=== PATIENT | male | born 1950 | race Caucasian/White ===

== ENCOUNTER 2016-09-10 11:48 | Emergency (ER) | payer MEDICARE, OTHER ==
[2016-09-10] MEDS ORDERED: Aspirin 81 MG Tab.Chew PO ONE (12:14)
--- NOTE | 2016-09-10 12:19 | EDM.PDOC ---
ED HPI GENERAL MEDICAL PROBLEM - General Chief Complaint: Chest Pain Stated Complaint: CHEST DISCOMFORT Time Seen by Provider: 09/10/16 12:17 Source of Information: Reports: Patient, RN Notes Reviewed History Limitations: Reports: No Limitations - History of Present Illness INITIAL COMMENTS - FREE TEXT/NARRATIVE: 66-year-old gentleman presents emergency department a complaint of chest pressure, he has a known cardiac history recently underwent stenting about a year and a half ago he states over the last 48 hours he said chest pressure mainly at night it is progressively getting worse he does not notice any difference with exertion has some radiations down his left arm does feel short of breath no nausea no diaphoresis at this time he is chest pain-free Left Chest Pain Score (Numeric/FACES): 6 - Related Data Allergies Allergy/AdvReac Type Severity Reaction Status Date / Time No Known Allergies Allergy Verified 09/10/16 12:33 Home Meds: Home Meds Aspirin 325 mg PO DAILY 09/10/16 [History] Clopidogrel [Plavix] 75 mg PO DAILY 09/10/16 [History] Levothyroxine Sodium 137 mcg PO DAILY 09/10/16 [History] Lisinopril [Prinivil] 2.5 mg PO DAILY 09/10/16 [History] Metoprolol Tartrate [Metoprolol Tartrate] 25 mg PO BID 09/10/16 [History] Nitroglycerin [IJP: Nitroglycerin] 0.4 mg SL ASDIRECTED PRN 09/10/16 [History] Omeprazole [Omeprazole] 20 mg PO BID 09/10/16 [History] atorvaSTATin [Lipitor] 40 mg PO BEDTIME 09/10/16 [History] metFORMIN HCl [Metformin HCl] 500 mg PO BID 09/10/16 [History] Past Medical History HEENT History: Reports: Impaired Vision Cardiovascular History: Reports: Heart Murmur, Stents Genitourinary History: Reports: BPH Endocrine/Metabolic History: Reports: Diabetes, Type II, Hypothyroidism - Past Surgical History GI Surgical History: Reports: Colonoscopy Social & Family History - Tobacco Use Smoking Status *Q: Never Smoker - Caffeine Use Caffeine Use: Reports: Coffee - Recreational Drug Use Recreational Drug Use: No ED ROS GENERAL - Review of Systems Review Of Systems: See Below Constitutional: Reports: No Symptoms HEENT: Reports: No Symptoms Respiratory: Reports: Shortness of Breath Cardiovascular: Reports: Chest Pain GI/Abdominal: Reports: No Symptoms : Reports: No Symptoms Musculoskeletal: Reports: No Symptoms Skin: Reports: No Symptoms ED EXAM, GENERAL - Physical Exam Exam: See Below Free Text/Narrative:: General:male, not in any distress, alert and oriented x3 HEENT: head is atraumatic normocephalic, eyes pupils equal round reactive to light, sclera clear no conjunctivitis appreciated. Ears tympanic membranes clear and ferris landmarks and light reflex are present bilaterally canals are clear. Nose no septal deviation, nares are clear, no blood present. Mouth mucosa is moist and pink no erythema or exudate noted in soft palate, tongue is midline uvula is midline, dentition is intact. Neck: Supple no thyromegaly no tracheal deviation. Nodes: Cervical nodes subclavicular nodes nontender no palpable lymphadenopathy noted. Lungs: clear to auscultation bilaterally with symmetrical respirations, no adventitious noise appreciated. CV: Regular rate and rhythm S1 and S2 appreciated no murmurs rubs or gallops noted. Abdomen: Soft, nontender, no palpable masses or organomegaly appreciated, no distention no guarding bowel sounds are present, umbilical hernia appreciated. Neuro: Cranial nerves II through XII grossly intact Skin: Warm and dry, intact Extremities: No lower extremity edema appreciated, Course - Vital Signs Last Recorded V/S: Last Vital Signs Temp 98.1 F 09/10/16 13:49 Pulse 62 09/10/16 13:49 Resp 16 09/10/16 13:49 BP 132/77 09/10/16 13:49 Pulse Ox 96 09/10/16 13:49 - Orders/Labs/Meds Orders: Active Orders 24 hr Category Date Time Status Cardiac Monitoring [RC] .As Directed Care 09/10/16 12:09 Active EKG Documentation Completion [RC] ASDIRECTED Care 09/10/16 12:17 Active EKG 12 Lead [EK] Stat Ther 09/10/16 12:09 Ordered Labs: Laboratory Tests 09/10/16 09/10/16 09/10/16 Range/Units 12:20 12:20 12:20 WBC 10.4 (4.5-11.0) K/uL RBC 4.76 (4.30-5.90) M/uL Hgb 14.7 (12.0-15.0) g/dL Hct 43.2 (40.0-54.0) % MCV 91 (80-98) fL MCH 31 (27-31) pg MCHC 34 (32-36) % Plt Count 201 (150-400) K/uL Neut % (Auto) 69 H (36-66) % Lymph % (Auto) 23 L (24-44) % [place] % (Auto) 8 H (2-6) % Eos % (Auto) 1 L (2-4) % Baso % (Auto) 0 (0-1) % Sodium 141 (140-148) mmol/L Potassium 4.1 (3.6-5.2) mmol/L Chloride 105 (100-108) mmol/L Carbon Dioxide 28 (21-32) mmol/L Anion Gap 8.4 (5.0-14.0) mmol/L BUN 19 H (7-18) mg/dL Creatinine 1.2 (0.8-1.3) mg/dL Est Cr Clr Drug Dosing 60.83 mL/min Estimated GFR (MDRD) > 60 (>60) Glucose 136 H (74-106) mg/dL Calcium 8.9 (8.5-10.1) mg/dL Total Bilirubin 0.9 (0.2-1.0) mg/dL AST 16 (15-37) U/L ALT 24 (12-78) U/L Alkaline Phosphatase 72 (46-116) U/L Troponin I 0.018 (0.000-0.056) ng/mL [id number] Pept 137 H (5-125) pg/mL Total Protein 6.9 (6.4-8.2) g/dL Albumin 3.4 (3.4-5.0) g/dL Globulin 3.5 (2.3-3.5) g/dL Albumin/Globulin Ratio 1.0 L (1.2-2.2) Meds: Medications Discontinued Medications Generic Name Dose Route Start Last Admin Trade Name Kleberq PRN Reason Stop Dose Admin Aspirin 324 mg 09/10/16 12:14 09/10/16 12:39 Aspirin PO 09/10/16 12:15 324 mg ONETIME ONE Administration Departure - Departure Time of Disposition: 14:03 Disposition: Home, Self-Care 01 Condition: Good Clinical Impression: Chest pressure Forms: ED Department Discharge Additional Instructions: Please report for your stress test on Friday, results about your primary care plan if results are abnormal referral to cardiology, call or return to the emergency department worsening of symptoms - My Orders Last 24 Hours: My Active Orders 09/10/16 12:09 Cardiac Monitoring [RC] .As Directed EKG 12 Lead [EK] Stat 09/10/16 12:17 EKG Documentation Completion [RC] ASDIRECTED - Assessment/Plan Last 24 Hours: My Active Orders 09/10/16 12:09 Cardiac Monitoring [RC] .As Directed EKG 12 Lead [EK] Stat 09/10/16 12:17 EKG Documentation Completion [RC] ASDIRECTED Plan: Assessment Acuity = acute Site and laterality = chest pain complicated patient with known history of coronary artery disease, dyslipidemia hypertensionand diabetes most type II Etiology = unclear etiology Manifestations = none Location of injury = home Lab values = CBC, CMP within normal limits troponin was negative EKG does show Q waves in lead 3 however this is same EKGs in 2014 chest x-ray shows no acute cardiopulmonary process Plan I did review lab work EKG results with him offered him options including hospital admission of which she declined elected to set up a stress test this week we were able to secure stress test [place] on Friday results will go to his primary care if abnormal plan is to consult with cardiology Patient was in agreement with the plan all questions were answered, they were instructed to return to the emergency department or call for worsening symptoms. This note was dictated using [employer] voice recognition software please call with any questions.
--- NOTE | 2016-09-10 13:17 | CR ---
Chest 2V HISTORY: Chest Pain COMPARISON: None FINDINGS: Lungs appear clear and normally aerated. Cardiomediastinal silhouette is within normal limits. No va scular redistribution or pleural fluid can be seen. Anterolateral aspects are noted diffusely along the thoracic spine. There is slight scoliosis convex to the right.. IMPRESSION: No acute cardiopulmonary disease is identified.
[2016-09-10 14:43] VITALS: BP 132/78
== END 2016-09-10 14:44 | disposition home or self-care (01) ==
LOC: JP.ED 11:48
DX: R07.89 Other chest pain (principal); E11.9 Type 2 diabetes mellitus without complications; E03.9 Hypothyroidism, unspecified; Z79.899 Other long term (current) drug therapy; Z79.82 Long term (current) use of aspirin
CPT/HCPCS: 36415; 71020; 80053; 83880; 84484; 85025; 93005; 99285; A9270; 93010; 99282

== ENCOUNTER 2019-10-11 14:13 | Emergency (ER) | payer MEDICARE, OTHER ==
[2019-10-11] MEDS ORDERED: Aspirin 81 MG Tab.Chew PO ONE (15:24)
[2019-10-11] MEDS ORDERED: Sodium Chloride 0.9% 500 ML IV SCH (15:30)
--- NOTE | 2019-10-11 15:32 | EDM.PDOC ---
ED HPI GENERAL MEDICAL PROBLEM - General Chief Complaint: Cardiovascular Problem Stated Complaint: HIGH BLOOD PRESSURE Time Seen by Provider: 10/11/19 14:15 Source of Information: Reports: Patient History Limitations: Reports: No Limitations - History of Present Illness INITIAL COMMENTS - FREE TEXT/NARRATIVE: 69-year-old male who has a history of coronary artery disease and a triple bypass a few years ago, type 2 diabetes mellitus, hypertension and Parkinson's disease presents to the emergency department with elevated blood pressure and vague symptoms. He takes his blood pressure a couple times a day and is noted increased readings over the past several days. His keeps track of them in a notebook and he has had a reading as high as 190 systolic although his son sa neal at times is even higher than that. He has no symptoms when his blood pressure readings are high however at other times he has vague feelings of not feeling well. At times he also has bilateral arm pain and nausea. Appears that his activity is less than usual over the past week however it is difficult for his family to be specific. He contacted his primary care's office today and they referred him to the ER for further evaluation. He notes occasional sharp prickly feelings anterior chest that are short-lived. He denies nausea, vomiting, diaphoresis or shortness of breath. He lives at home with his . Chest Pain Score (Numeric/FACES): 1 - Related Data Allergies Allergy/AdvReac Type Severity Reaction Status Date / Time No Known Allergies Allergy Verified 10/11/19 14:36 Home Meds: Home Meds Levothyroxine Sodium 137 mcg PO DAILY 09/10/16 [History] Metoprolol Tartrate 25 mg PO BID 09/10/16 [History] Nitroglycerin [IJP: Nitroglycerin] 0.4 mg SL ASDIRECTED PRN 09/10/16 [History] Omeprazole 20 mg PO BID 09/10/16 [History] atorvaSTATin [Lipitor] 40 mg PO BEDTIME 09/10/16 [History] lisinopriL [Prinivil] 2.5 mg PO DAILY 09/10/16 [History] metFORMIN HCl [Metformin HCl] 500 mg PO BID 09/10/16 [History] Aspirin [Ecotrin EC] 81 mg PO DAILY 10/11/19 [History] QUEtiapine Fumarate [Quetiapine Fumarate] 25 mg PO DAILY 10/11/19 [History] Tamsulosin [Tamsulosin 24 Hr] 0.4 mg PO DAILY 10/11/19 [History] Ubidecarenone [Co Q-10] 100 mg PO DAILY 10/11/19 [History] Vitamin B Complex 1 cap PO DAILY 10/11/19 [History] traZODone HCl [Trazodone HCl] 50 mg PO BEDTIME 10/11/19 [History] Past Medical History HEENT History: Reports: Impaired Vision, Other (See Below) Other HEENT History: eye infection Cardiovascular History: Reports: CAD, Heart Murmur, High Cholesterol, Hypertension, Stents Respiratory History: Reports: COPD Gastrointestinal History: Reports: Gastritis, GI Bleed Genitourinary History: Reports: BPH Musculoskeletal History: Reports: None Neurological History: Reports: Parkinson's Other Neuro History: ? Parkinsons Psychiatric History: Reports: None Endocrine/Metabolic History: Reports: Diabetes, Type II, Hypothyroidism Hematologic History: Reports: None Immunologic History: Reports: None Oncologic (Cancer) History: Reports: None Dermatologic History: Reports: None - Past Surgical History Cardiovascular Surgical History: Reports: Coronary Artery Bypass, Percutaneous Transluminal Angioplasty Other Cardiovascular Surgeries/Procedures: 2 years ago GI Surgical History: Reports: Colonoscopy, Hernia Repair/Other Social & Family History - Tobacco Use Smoking Status *Q: Never Smoker - Caffeine Use Caffeine Use: Reports: Coffee, Tea - Recreational Drug Use Recreational Drug Use: No ED ROS GENERAL - Review of Systems Review Of Systems: See Below Constitutional: Denies: Fever, Chills, Diaphoresis HEENT: Denies: Vision Change Respiratory: Denies: Shortness of Breath, Cough Cardiovascular: Reports: Chest Pain, Blood Pressure Problem GI/Abdominal: Denies: Nausea, Vomiting Musculoskeletal: Denies: Neck Pain, Back Pain Skin: Reports: Rash Neurological: Reports: Trouble Speaking, Difficulty Walking Psychiatric: Denies: Confusion ED EXAM, GENERAL - Physical Exam Exam: See Below Exam Limited By: Other (He has Parkinson's disease and his voice is difficult to hear. He is quite vague and much of his history was provided by his son and . I spoke to the by phone. His son accompanied him to the ER today.) General Appearance: Alert, No Apparent Distress Ears: Normal External Exam, Normal Canal Throat/Mouth: Normal Inspection Head: Atraumatic, Normocephalic Neck: Normal Inspection, Supple, Non-Tender, Other (No JVD) Respiratory/Chest: Lungs Clear, Normal Breath Sounds Cardiovascular: No Edema, No Gallop, No JVD, No Murmur GI/Abdominal: Normal Bowel Sounds, Soft, Non-Tender Extremities: Normal Inspection, Non-Tender, Pedal Edema Neurological: Alert, Memory Loss Recent Events, Other (Flat facial expression, low voice volume and muscle stiffness characteristic of Parkinson's disease.) Course - Vital Signs Text/Narrative:: This patient presents to the emergency department with vague symptoms. He is mostly concerned about his blood pressure. He is also concerned about discomfort in his arms, chest and also red eyes. Blood pressure readings were elevated at home. In the ED they were stable at 169/80 systolic. He was afebrile and the other vital sign elements were normal. He had chest x-ray that appeared to be acute to me. ECG showed no acute changes compared to previous x-rays by my read. He had normal CBC and his basic metabolic profile appeared unremarkable. Blood sugar is slightly elevated 119. His creatinine is 1.1. His BNP is slightly elevated 284 but I saw no physical signs of failure and his chest x-ray appeared normal. Troponin was negative and a urinalysis was unremarkable. Discharging him home to follow-up with his primary care provider who can adjust his blood pressure medications. His family felt comfortable with this plan. Also given a prescription of antibiotic eyedrops for his red eyes. He is using a clear eyes type of eyedrop and he was advised to stop it. There is a rebound redness that comes with that medication. We will follow-up with his primary care provider or inspector [employer] for eye problems as well. Last Recorded V/S: Last Vital Signs Temp 37.4 C 10/11/19 14:24 Pulse 74 10/11/19 16:35 Resp 20 10/11/19 16:35 BP 169/83 H 10/11/19 16:35 Pulse Ox 96 10/11/19 16:35 - Orders/Labs/Meds Orders: Active Orders 24 hr Category Date Time Status EKG Documentation Completion [RC] ASDIRECTED Care 10/11/19 15:08 Active Chest 1V Frontal [CR] Stat Exams 10/11/19 15:20 Taken Sodium Chloride 0.9% [Normal Saline] 500 ml Med 10/11/19 15:30 Active IV ASDIRECTED EKG 12 Lead [EK] Routine Ther 10/11/19 15:08 Ordered Medication Orders Sodium Chloride (Normal Saline) 500 mls @ 1,000 mls/hr IV ASDIRECTED DESHAWN Last Admin: 10/11/19 15:50 Dose: 1,000 mls/hr Documented by: PREILOR Labs: Laboratory Tests 10/11/19 10/11/19 10/11/19 Range/Units 15:23 15:50 15:50 WBC 10.3 (4.5-11.0) K/uL RBC 4.61 (4.30-5.90) M/uL Hgb 13.7 (12.0-15.0) g/dL Hct 42.6 (40.0-54.0) % MCV 92 (80-98) fL MCH 30 (27-31) pg MCHC 32 (32-36) % Plt Count 217 (150-400) K/uL Neut % (Auto) 74 H (36-66) % Lymph % (Auto) 18 L (24-44) % [place] % (Auto) 7 H (2-6) % Eos % (Auto) 1 L (2-4) % Baso % (Auto) 0 (0-1) % Sodium 145 (140-148) mmol/L Potassium 3.9 (3.6-5.2) mmol/L Chloride 108 (100-108) mmol/L Carbon Dioxide 23 (21-32) mmol/L Anion Gap 13.7 (5.0-14.0) mmol/L BUN 27 H (7-18) mg/dL Creatinine 1.1 (0.8-1.3) mg/dL Est Cr Clr Drug Dosing 61.59 mL/min Estimated GFR (MDRD) > 60 (>60) Glucose 119 H (74-106) mg/dL Calcium 8.7 (8.5-10.1) mg/dL Troponin I (0.000-0.056) ng/mL NT-Pro-B Natriuret Pep (5-125) pg/mL Urine Color Yellow (YELLOW) Urine Appearance Clear (CLEAR) Urine pH 5.5 (5.0-8.0) Ur Specific [place] >= 1.030 (1.008-1.030) Urine Protein Negative (NEGATIVE) mg/dL Urine Glucose (UA) Negative (NEGATIVE) mg/dL Urine Ketones Negative (NEGATIVE) mg/dL Urine Occult Blood Negative (NEGATIVE) Urine Nitrite Negative (NEGATIVE) Urine Bilirubin Negative (NEGATIVE) Urine Urobilinogen 1.0 (0.2-1.0) EU/dL Ur Leukocyte Esterase Negative (NEGATIVE) Urine RBC Not seen (0-5) Urine WBC 0-5 (0-5) Ur Epithelial Cells Not seen Amorphous Sediment Not seen Urine Bacteria Rare Urine Mucus Not seen 10/11/19 Range/Units 15:50 WBC (4.5-11.0) K/uL RBC (4.30-5.90) M/uL Hgb (12.0-15.0) g/dL Hct (40.0-54.0) % MCV (80-98) fL MCH (27-31) pg MCHC (32-36) % Plt Count (150-400) K/uL Neut % (Auto) (36-66) % Lymph % (Auto) (24-44) % [place] % (Auto) (2-6) % Eos % (Auto) (2-4) % Baso % (Auto) (0-1) % Sodium (140-148) mmol/L Potassium (3.6-5.2) mmol/L Chloride (100-108) mmol/L Carbon Dioxide (21-32) mmol/L Anion Gap (5.0-14.0) mmol/L BUN (7-18) mg/dL Creatinine (0.8-1.3) mg/dL Est Cr Clr Drug Dosing mL/min Estimated GFR (MDRD) (>60) Glucose (74-106) mg/dL Calcium (8.5-10.1) mg/dL Troponin I < 0.017 (0.000-0.056) ng/mL NT-Pro-B Natriuret Pep 284 H (5-125) pg/mL Urine Color (YELLOW) Urine Appearance (CLEAR) Urine pH (5.0-8.0) Ur Specific [place] (1.008-1.030) Urine Protein (NEGATIVE) mg/dL Urine Glucose (UA) (NEGATIVE) mg/dL Urine Ketones (NEGATIVE) mg/dL Urine Occult Blood (NEGATIVE) Urine Nitrite (NEGATIVE) Urine Bilirubin (NEGATIVE) Urine Urobilinogen (0.2-1.0) EU/dL Ur Leukocyte Esterase (NEGATIVE) Urine RBC (0-5) Urine WBC (0-5) Ur Epithelial Cells Amorphous Sediment Urine Bacteria Urine Mucus Meds: Medications Generic Name Dose Route Start Last Admin Trade Name Freq PRN Reason Stop Dose Admin Sodium Chloride 500 mls @ 1,000 mls/hr 10/11/19 15:30 10/11/19 15:50 Normal Saline IV 1,000 mls/hr ASDIRECTED DESHAWN Administration Discontinued Medications Generic Name Dose Route Start Last Admin Trade Name Freq PRN Reason Stop Dose Admin Aspirin 324 mg 10/11/19 15:24 10/11/19 15:51 Aspirin PO 10/11/19 15:25 324 mg ONETIME ONE Administration Departure - Departure Time of Disposition: 16:40 Disposition: Home, Self-Care 01 Condition: Good Clinical Impression: Elevated blood pressure reading Referrals: Deny Espinoza NP [Primary Care Provider] - Forms: ED Department Discharge Additional Instructions: New all your current medications. Follow-up with your primary care provider in the clinic regarding your blood pressure and medication adjustments. Return to the ER if you have increased symptoms or problems. Sepsis Event Note (ED) - Evaluation Sepsis Screening Result: No Definite Risk - Focused Exam Vital Signs: Vital Signs Temp Pulse Resp BP Pulse Ox 10/11/19 16:35 74 20 169/83 H 96 10/11/19 15:56 75 26 H 168/72 H 96 10/11/19 15:25 75 18 168/72 H 96 10/11/19 14:55 80 16 175/77 H 96 10/11/19 14:24 37.4 C 82 16 178/93 H 97 - My Orders Last 24 Hours: My Active Orders 10/11/19 15:08 EKG Documentation Completion [RC] ASDIRECTED EKG 12 Lead [EK] Routine 10/11/19 15:20 Chest 1V Frontal [CR] Stat 10/11/19 15:30 Sodium Chloride 0.9% [Normal Saline] 500 ml IV ASDIRECTED - Assessment/Plan Last 24 Hours: My Active Orders 10/11/19 15:08 EKG Documentation Completion [RC] ASDIRECTED EKG 12 Lead [EK] Routine 10/11/19 15:20 Chest 1V Frontal [CR] Stat 10/11/19 15:30 Sodium Chloride 0.9% [Normal Saline] 500 ml IV ASDIRECTED
[2019-10-11 16:35] VITALS: BP 169/83; PULSE 74
--- NOTE | 2019-10-12 09:01 | CR ---
CHEST: Portable 10/11/2019 at 3:44 PM CLINICAL HISTORY:Chest pain COMPARISON:2017 FINDINGS: Patient has had previous sternotomy. Heart size and pulmonary vascularity are normal. No infiltrates are seen. There are a few tiny calcifications in both lung [place]. There are atherosclerotic changes in the aorta. Impression: No acute cardiac pulmonary process Previous sternotomy. Previous granulomatous exposure.
== END 2019-10-11 17:18 | disposition home or self-care (01) ==
LOC: JP.ED 14:13
DX: I10 Essential (primary) hypertension (principal); E78.00 Pure hypercholesterolemia, unspecified; I25.10 Atherosclerotic heart disease of native coronary artery without angina pectoris; J44.9 Chronic obstructive pulmonary disease, unspecified; E11.9 Type 2 diabetes mellitus without complications; E03.9 Hypothyroidism, unspecified; Z79.899 Other long term (current) drug therapy; Z79.82 Long term (current) use of aspirin; Z79.84 Long term (current) use of oral hypoglycemic drugs
CPT/HCPCS: 36415; 71045; 80048; 81001; 83880; 84484; 85025; 93005; 93010; 96360; 99284; A9270; J7030

== ENCOUNTER 2019-11-28 00:38 | Emergency (ER) | payer MEDICARE, OTHER ==
--- NOTE | 2019-11-28 01:13 | EDM.PDOC ---
ED HPI GENERAL MEDICAL PROBLEM - General Chief Complaint: Cardiovascular Problem Stated Complaint: HIGH BLOOD PRESSURE Time Seen by Provider: 11/28/19 01:05 Source of Information: Reports: Patient History Limitations: Reports: No Limitations - History of Present Illness INITIAL COMMENTS - FREE TEXT/NARRATIVE: pt had like a pop when he got up from the couch. He states the pain last for a few moments and then it got better. He was not sob. He has been having some bp problems and 2 days ago his metropol was doubled. Onset: Today, Other (pt developed the sharp pain. ) Duration: Hour(s): Location: Reports: Chest, Other (pt felt like something popped/ ) Associated Symptoms: Reports: Chest Pain, Other ( slight dizziness. He stood up from the couch and he felt dizzy. ) Middle Chest Pain Score (Numeric/FACES): 1 - Related Data Allergies Allergy/AdvReac Type Severity Reaction Status Date / Time No Known Allergies Allergy Verified 11/28/19 00:49 Home Meds: Home Meds Levothyroxine Sodium 137 mcg PO DAILY 09/10/16 [History] Metoprolol Tartrate 25 mg PO BID 09/10/16 [History] Nitroglycerin [IJP: Nitroglycerin] 0.4 mg SL ASDIRECTED PRN 09/10/16 [History] Omeprazole 20 mg PO BID 09/10/16 [History] atorvaSTATin [Lipitor] 40 mg PO BEDTIME 09/10/16 [History] lisinopriL [Prinivil] 2.5 mg PO DAILY 09/10/16 [History] metFORMIN HCl [Metformin HCl] 500 mg PO BID 09/10/16 [History] Aspirin [Ecotrin EC] 81 mg PO DAILY 10/11/19 [History] QUEtiapine Fumarate [Quetiapine Fumarate] 25 mg PO DAILY 10/11/19 [History] Tamsulosin [Tamsulosin 24 Hr] 0.4 mg PO DAILY 10/11/19 [History] Ubidecarenone [Co Q-10] 100 mg PO DAILY 10/11/19 [History] Vitamin B Complex 1 cap PO DAILY 10/11/19 [History] traZODone HCl [Trazodone HCl] 50 mg PO BEDTIME 10/11/19 [History] Past Medical History HEENT History: Reports: Impaired Vision, Other (See Below) Other HEENT History: eye infection Cardiovascular History: Reports: CAD, Heart Murmur, High Cholesterol, Hypertension, Stents Respiratory History: Reports: COPD Gastrointestinal History: Reports: Gastritis, GI Bleed Genitourinary History: Reports: BPH Musculoskeletal History: Reports: None Neurological History: Reports: Parkinson's Other Neuro History: ? Parkinsons Psychiatric History: Reports: None Endocrine/Metabolic History: Reports: Diabetes, Type II, Hypothyroidism Hematologic History: Reports: None Immunologic History: Reports: None Oncologic (Cancer) History: Reports: None Dermatologic History: Reports: None - Infectious Disease History Infectious Disease History: Reports: Chicken Pox, Measles, Mumps, Shingles - Past Surgical History Cardiovascular Surgical History: Reports: Coronary Artery Bypass, Percutaneous Transluminal Angioplasty Other Cardiovascular Surgeries/Procedures: 2 years ago GI Surgical History: Reports: Colonoscopy, Hernia Repair/Other Social & Family History - Tobacco Use Smoking Status *Q: Never Smoker - Caffeine Use Caffeine Use: Reports: Coffee, Tea Caffeine Use Comment: 2 cups of coffee per day - Recreational Drug Use Recreational Drug Use: No ED ROS GENERAL - Review of Systems Review Of Systems: See Below Constitutional: Reports: No Symptoms HEENT: Reports: No Symptoms Respiratory: Reports: No Symptoms Cardiovascular: Reports: Chest Pain, Other (pt felt like something popped. ) Endocrine: Reports: No Symptoms GI/Abdominal: Reports: No Symptoms : Reports: No Symptoms Musculoskeletal: Reports: No Symptoms Skin: Reports: No Symptoms ED EXAM, GENERAL - Physical Exam Exam: See Below Free Text/Narrative:: pt arrived stating that he had dizziness when he got up from the couch and he felt like something popped in his chest. This caused a sharp pain in the chest. Exam Limited By: No Limitations General Appearance: Alert, Anxious, Other ( no distress at this time. ) Ears: Normal TMs Nose: Normal Inspection Throat/Mouth: Normal Inspection Head: Atraumatic Neck: Normal Inspection Respiratory/Chest: No Respiratory Distress Cardiovascular: Regular Rate, Rhythm GI/Abdominal: Soft, Non-Tender Rectal (Males) Exam: Deferred Back Exam: Normal Inspection Extremities: Normal Inspection Neurological: Alert, Oriented, Normal Cognition Psychiatric: Anxious Course - Vital Signs Last Recorded V/S: Last Vital Signs Temp 36.9 C 11/28/19 00:51 Pulse 65 11/28/19 00:51 Resp 17 11/28/19 00:51 BP 153/69 H 11/28/19 01:49 Pulse Ox 97 11/28/19 00:51 - Orders/Labs/Meds Labs: Laboratory Tests 11/28/19 Range/Units 01:32 Troponin I < 0.017 (0.000-0.056) ng/mL - Re-Assessments/Exams Free Text/Narrative Re-Assessment/Exam: 11/28/19 01:19 pt had a bp of 173 systolic on arrival. this came down to 154. He is having very little discomfort at this point. 11/28/19 01:45 pt had a ekg which did not show abnormalities. Departure - Departure Time of Disposition: 02:15 Disposition: Home, Self-Care 01 Condition: Fair Clinical Impression: Hypertension, Chest wall pain Instructions: Managing Your Hypertension, Hypertension, Adult Referrals: Deny Espinoza NP [Primary Care Provider] - Forms: ED Department Discharge Care Plan Goals: continue same meds, tylenol or motrin for chest discomfort. follow up with Deny uriostegui Sepsis Event Note (ED) - Evaluation Sepsis Screening Result: No Definite Risk
[2019-11-28 01:14] VITALS: PULSE 65
[2019-11-28 01:50] VITALS: BP 153/69
== END 2019-11-28 02:12 | disposition home or self-care (01) ==
LOC: JP.ED 00:38
DX: R07.89 Other chest pain (principal); I10 Essential (primary) hypertension; I25.10 Atherosclerotic heart disease of native coronary artery without angina pectoris; J44.9 Chronic obstructive pulmonary disease, unspecified; N40.0 Benign prostatic hyperplasia without lower urinary tract symptoms; E11.9 Type 2 diabetes mellitus without complications; E03.9 Hypothyroidism, unspecified; Z95.1 Presence of aortocoronary bypass graft; Z79.899 Other long term (current) drug therapy; Z79.82 Long term (current) use of aspirin; Z79.84 Long term (current) use of oral hypoglycemic drugs
CPT/HCPCS: 36415; 84484; 93005; 93010; 99283; 99285-25

== ENCOUNTER 2020-11-11 13:20 | Emergency (ER) | payer MEDICARE, OTHER ==
[2020-11-11 13:45] VITALS: BP 183/90; PULSE 72
--- NOTE | 2020-11-11 14:31 | EDM.PDOC ---
ED HPI GENERAL MEDICAL PROBLEM - General Chief Complaint: General Stated Complaint: VERY WEAK AND CANNOT STAND Time Seen by Provider: 11/11/20 13:55 Source of Information: Reports: Patient, Family, Old Records, RN History Limitations: Reports: No Limitations - History of Present Illness INITIAL COMMENTS - FREE TEXT/NARRATIVE: 70 yo male with difficult to tx Parkinson's recently had his Seroquel stopped out of concern it may be worsening his Parkinson's. Has been on Sinemet without benefit so it was stopped, and he didn't worsen. Not sleeping since stopping the Seroquel. Gets almost no activity due to the Parkinson's. Has tried Melatonin at bedtime without benefit. Mentions he feels like he might pass out at times lately while sitting, but is not able to elaborate and family has not noticed any changes in him when he feels this way. Saw a Dr. Heller in last Friday, 8 d ago, for his Parkinson's(first appt). Onset: Gradual Duration: Day(s):, Getting Worse Location: Reports: Generalized Quality: Reports: Other (pain not an issue) Severity: Severe (insomnia) Improves with: Reports: None Worsens with: Reports: Other (Seroquel removal) Context: Reports: Other (See HPI) Associated Symptoms: Reports: Malaise Treatments DIETARY TECH: Reports: Other (see below) (none) - Related Data Allergies Allergy/AdvReac Type Severity Reaction Status Date / Time No Known Allergies Allergy Verified 11/28/19 00:49 Home Meds: Home Meds Levothyroxine Sodium 137 mcg PO DAILY 09/10/16 [History] Metoprolol Tartrate 25 mg PO BID 09/10/16 [History] Nitroglycerin [IJP: Nitroglycerin] 0.4 mg SL ASDIRECTED PRN 09/10/16 [History] Omeprazole 20 mg PO BID 09/10/16 [History] atorvaSTATin [Lipitor] 40 mg PO BEDTIME 09/10/16 [History] lisinopriL [Prinivil] 2.5 mg PO DAILY 09/10/16 [History] metFORMIN HCl [Metformin HCl] 500 mg PO BID 09/10/16 [History] Aspirin [Ecotrin EC] 81 mg PO DAILY 10/11/19 [History] Tamsulosin [Tamsulosin 24 Hr] 0.4 mg PO DAILY 10/11/19 [History] Ubidecarenone [Co Q-10] 100 mg PO DAILY 10/11/19 [History] Vitamin B Complex 1 cap PO DAILY 10/11/19 [History] traZODone HCl [Trazodone HCl] 50 mg PO BEDTIME 10/11/19 [History] QUEtiapine Fumarate [Seroquel] 25 mg PO DAILY 11/11/20 [History] Past Medical History HEENT History: Reports: Impaired Vision, Other (See Below) Other HEENT History: eye infection Cardiovascular History: Reports: CAD, Heart Murmur, High Cholesterol, Hypertension, Stents Respiratory History: Reports: COPD Gastrointestinal History: Reports: Gastritis, GI Bleed Genitourinary History: Reports: BPH Musculoskeletal History: Reports: None Neurological History: Reports: Parkinson's Other Neuro History: ? Parkinsons Psychiatric History: Reports: None Endocrine/Metabolic History: Reports: Diabetes, Type II, Hypothyroidism Hematologic History: Reports: None Immunologic History: Reports: None Oncologic (Cancer) History: Reports: None Dermatologic History: Reports: None - Infectious Disease History Infectious Disease History: Reports: Chicken Pox, Measles, Mumps, Shingles - Past Surgical History Cardiovascular Surgical History: Reports: Coronary Artery Bypass, Percutaneous Transluminal Angioplasty Other Cardiovascular Surgeries/Procedures: 2 years ago GI Surgical History: Reports: Colonoscopy, Hernia Repair/Other Social & Family History - Tobacco Use Tobacco Use Status *Q: Never Tobacco User - Caffeine Use Caffeine Use: Reports: Coffee Caffeine Use Comment: 2 cups of coffee per day ED ROS GENERAL - Review of Systems Review Of Systems: See Below Constitutional: Reports: No Symptoms HEENT: Reports: No Symptoms Respiratory: Reports: No Symptoms Cardiovascular: Reports: No Symptoms GI/Abdominal: Reports: No Symptoms : Reports: Other (nocturia x every hr even with Flomax 0.8 mg at hs) Musculoskeletal: Reports: No Symptoms Skin: Reports: No Symptoms Neurological: Reports: Other (Severe Parkinson's, worsening insomnia) ED EXAM, GENERAL - Physical Exam Exam: See Below Exam Limited By: No Limitations General Appearance: Alert, WD/WN, No Apparent Distress Eye Exam: Bilateral Eye: Normal Inspection Ears: Normal External Exam, Normal Canal, Hearing Grossly Normal, Normal TMs Ear Exam: Bilateral Ear: Auricle Normal, Canal Normal, TM normal Nose: Normal Inspection, No Blood Throat/Mouth: Normal Inspection, Normal Lips, Normal Oropharynx, Normal Voice, No Airway Compromise Head: Atraumatic, Normocephalic Neck: Normal Inspection Respiratory/Chest: No Respiratory Distress, Lungs Clear, Normal Breath Sounds, No Accessory Muscle Use Cardiovascular: Regular Rate, Rhythm, No Edema GI/Abdominal: Soft, Non-Tender Back Exam: Normal Inspection Extremities: Normal Inspection, Normal Range of Motion, Non-Tender, No Pedal Edema Neurological: Alert, Oriented, CN II-XII Intact, Normal Cognition. No: No Motor/Sensory Deficits (moves very slowly, hard to initiate movement) Psychiatric: Normal Affect, Flat Affect Skin Exam: Warm, Dry, Intact, Normal Color, No Rash Course - Vital Signs Last Recorded V/S: Last Vital Signs Temp 36.7 C 11/11/20 13:56 Pulse 72 11/11/20 13:56 Resp 16 11/11/20 13:56 BP 183/90 H 11/11/20 13:56 Pulse Ox 97 11/11/20 13:56 Departure - Departure Time of Disposition: 14:33 Disposition: Home, Self-Care 01 Condition: Fair Clinical Impression: Insomnia Qualifiers: Insomnia type: due to medical condition Qualified Code(s): G47.01 - Insomnia due to medical condition - Discharge Information *PRESCRIPTION DRUG MONITORING PROGRAM REVIEWED*: Not Applicable *COPY OF PRESCRIPTION DRUG MONITORING REPORT IN PATIENT LINDY: Not Applicable Referrals: Deny Espinoza, BREAKER TENDER [Primary Care Provider] - Additional Instructions: Take melatonin at 5 pm a dose of 5 mg, if after a few night you notice no benefit try doubling dose to 10mg. If 10 mg does not help drop dose back to 5 mg at 5 pm. Take Tryptophan 500-1000 mg an hour before bedtime to help with sleep. Using a walker try to get as much exercise as possible each day to help sleep and other bodily functions. Add trazodone 50 mg an hour before bed as needed for sleep. F/U with Deny Espinoza rosalind. Return as needed. Sepsis Event Note (ED) - Evaluation Sepsis Screening Result: No Definite Risk - Focused Exam Vital Signs: Vital Signs Temp Pulse Resp BP Pulse Ox 11/11/20 13:56 36.7 C 72 16 183/90 H 97 11/11/20 13:44 36.7 C 72 16 183/90 H 97
== END 2020-11-11 14:50 | disposition home or self-care (01) ==
LOC: JP.ED 13:20
DX: G47.01 Insomnia due to medical condition (principal); I25.10 Atherosclerotic heart disease of native coronary artery without angina pectoris; E78.00 Pure hypercholesterolemia, unspecified; I10 Essential (primary) hypertension; J44.9 Chronic obstructive pulmonary disease, unspecified; E11.9 Type 2 diabetes mellitus without complications; E03.9 Hypothyroidism, unspecified; Z95.1 Presence of aortocoronary bypass graft; Z79.82 Long term (current) use of aspirin; Z79.899 Other long term (current) drug therapy
CPT/HCPCS: 99284

== ENCOUNTER 2021-01-03 10:08 | Emergency (ER) | payer MEDICARE, OTHER ==
[2021-01-03 10:27] VITALS: BP 190/82; PULSE 66
[2021-01-03] MEDS ORDERED: Lidocaine 1% with EPINEPHrine 1:100,000 50 ML MDV INFILT ONE (10:35)
[2021-01-03] MEDS ORDERED: Bacitracin Oint 1 GM U/D Packet TOP ONE (10:58)
--- NOTE | 2021-01-03 10:59 | EDM.PDOC ---
ED HPI GENERAL MEDICAL PROBLEM - General Chief Complaint: Head Injury Stated Complaint: FALL/CUT ON HEAD Time Seen by Provider: 01/03/21 10:35 Source of Information: Reports: Patient, Family History Limitations: Reports: No Limitations - History of Present Illness INITIAL COMMENTS - FREE TEXT/NARRATIVE: 70-year-old male, fell last evening sustaining a laceration to the right side of his scalp. This morning it was still bleeding so they wanted it looked at. No loss of consciousness, no neurologic deficits. He is not complaining of a headache. Onset: Sudden Duration: Hour(s): (12 hours ago) Location: Reports: Head (Right parietal scalp) Associated Symptoms: Reports: No Other Symptoms - Related Data Allergies Allergy/AdvReac Type Severity Reaction Status Date / Time No Known Allergies Allergy Verified 11/28/19 00:49 Home Meds: Home Meds Levothyroxine Sodium 137 mcg PO DAILY 09/10/16 [History] Metoprolol Tartrate 25 mg PO BID 09/10/16 [History] Nitroglycerin [IJP: Nitroglycerin] 0.4 mg SL ASDIRECTED PRN 09/10/16 [History] Omeprazole 20 mg PO BID 09/10/16 [History] atorvaSTATin [Lipitor] 40 mg PO BEDTIME 09/10/16 [History] lisinopriL [Prinivil] 2.5 mg PO DAILY 09/10/16 [History] metFORMIN HCl [Metformin HCl] 500 mg PO BID 09/10/16 [History] Aspirin [Ecotrin EC] 81 mg PO DAILY 10/11/19 [History] Tamsulosin [Tamsulosin 24 Hr] 0.4 mg PO DAILY 10/11/19 [History] Ubidecarenone [Co Q-10] 100 mg PO DAILY 10/11/19 [History] Vitamin B Complex 1 cap PO DAILY 10/11/19 [History] traZODone HCl [Trazodone HCl] 50 mg PO BEDTIME 10/11/19 [History] QUEtiapine Fumarate [Seroquel] 25 mg PO DAILY 11/11/20 [History] traZODone 50 mg PO BEDTIME #30 tab 11/11/20 [Rx] Past Medical History HEENT History: Reports: Impaired Vision, Other (See Below) Other HEENT History: eye infection Cardiovascular History: Reports: CAD, Heart Murmur, High Cholesterol, Hypertension, Stents Respiratory History: Reports: COPD Gastrointestinal History: Reports: Gastritis, GI Bleed Genitourinary History: Reports: BPH Musculoskeletal History: Reports: None Neurological History: Reports: Parkinson's Other Neuro History: ? Parkinsons Psychiatric History: Reports: None Endocrine/Metabolic History: Reports: Diabetes, Type II, Hypothyroidism Hematologic History: Reports: None Immunologic History: Reports: None Oncologic (Cancer) History: Reports: None Dermatologic History: Reports: None - Infectious Disease History Infectious Disease History: Reports: Chicken Pox, Measles, Mumps, Shingles - Past Surgical History Cardiovascular Surgical History: Reports: Coronary Artery Bypass, Percutaneous Transluminal Angioplasty Other Cardiovascular Surgeries/Procedures: 2 years ago GI Surgical History: Reports: Colonoscopy, Hernia Repair/Other Social & Family History - Tobacco Use Tobacco Use Status *Q: Never Tobacco User - Caffeine Use Caffeine Use: Reports: Tea Caffeine Use Comment: 2 cups of coffee per day - Recreational Drug Use Recreational Drug Use: No ED ROS GENERAL - Review of Systems Review Of Systems: See Below Constitutional: Denies: Fever, Chills HEENT: Denies: Vision Change Respiratory: Denies: Shortness of Breath GI/Abdominal: Denies: Nausea, Vomiting Neurological: Reports: Other (Has dementia, weakness with more falls recently). Denies: Headache ED EXAM, HEAD INJURY - Physical Exam Exam: See Below Exam Limited By: No Limitations General Appearance: Alert, No Apparent Distress Head: Other (4 cm somewhat irregular laceration on the right parietal scalp) Eyes: Bilateral Eye: Normal Inspection Neck: Non-Tender Respiratory: No Respiratory Distress Neurologic: No Motor/Sensory Deficits, Alert, Normal Mood/Affect Course - Vital Signs Last Recorded V/S: Last Vital Signs Temp 98.2 F 01/03/21 10:47 Pulse 66 01/03/21 10:47 Resp 16 01/03/21 10:47 BP 190/82 H 01/03/21 10:47 Pulse Ox 97 01/03/21 10:47 - Orders/Labs/Meds Meds: Medications Discontinued Medications Generic Name Dose Route Start Last Admin Trade Name Freq PRN Reason Stop Dose Admin Bacitracin 1 dose 01/03/21 10:58 01/03/21 11:19 Bacitracin Oint 1 Gm U/D Packet TOP 01/03/21 10:59 1 dose ONETIME ONE Administration Lidocaine/Epinephrine 30 ml 01/03/21 10:35 01/03/21 10:46 Lidocaine 1% With Epinephrine 1:100,000 50 Ml Mdv INFILT 01/03/21 10:36 30 ml ONETIME ONE Administration - Re-Assessments/Exams Free Text/Narrative Re-Assessment/Exam: 01/03/21 10:57 The laceration was anesthetized with 1% lidocaine with epinephrine, cleansed thoroughly with saline, and closed with seven tracy. These can be removed in 1 week. Recheck sooner if concerns of infection or not healing satisfactorily. Topical bacitracin and a pressure dressing was applied. Departure - Departure Time of Disposition: 11:20 Disposition: Home, Self-Care 01 Clinical Impression: Laceration of scalp Qualifiers: Encounter type: initial encounter Qualified Code(s): S01.01XA - Laceration without foreign body of scalp, initial encounter - Discharge Information Instructions: Facial or Scalp Contusion, [id number] Referrals: Deny Espinoza, CONTENT WRITER [Primary Care Provider] - Forms: ED Department Discharge Care Plan Goals: Keep wound clean while healing, and tracy can be removed in 7 days. Recheck sooner if concerns of infection or not healing satisfactorily. Sepsis Event Note (ED) - Evaluation Sepsis Screening Result: No Definite Risk - Focused Exam Vital Signs: Vital Signs Temp Pulse Resp BP Pulse Ox 01/03/21 10:47 98.2 F 66 16 190/82 H 97 01/03/21 10:26 98.2 F 66 16 190/82 H 97
== END 2021-01-03 11:20 | disposition home or self-care (01) ==
LOC: JP.ED 10:08
DX: S01.01XA Laceration without foreign body of scalp, initial encounter (principal); E03.9 Hypothyroidism, unspecified; I25.10 Atherosclerotic heart disease of native coronary artery without angina pectoris; E78.00 Pure hypercholesterolemia, unspecified; I10 Essential (primary) hypertension; J44.9 Chronic obstructive pulmonary disease, unspecified; E11.9 Type 2 diabetes mellitus without complications; Z95.1 Presence of aortocoronary bypass graft; Z79.899 Other long term (current) drug therapy; Z79.82 Long term (current) use of aspirin; Z79.84 Long term (current) use of oral hypoglycemic drugs; W18.09XA Striking against other object with subsequent fall, initial encounter; W26.8XXA Contact with other sharp object(s), not elsewhere classified, initial encounter
CPT/HCPCS: 12002; 99282-25

== ENCOUNTER 2021-01-31 13:45 | Emergency (ER) | payer MEDICARE, OTHER ==
[2021-01-31 14:56] VITALS: BP 181/84; PULSE 73
[2021-01-31] MEDS ORDERED: Acetaminophen/HYDROcodone 325-5 MG Tab PO ONE (15:16)
--- NOTE | 2021-01-31 15:20 | EDM.PDOC ---
ED HPI GENERAL MEDICAL PROBLEM - General Chief Complaint: General Stated Complaint: MEDICAL VIA [place] Time Seen by Provider: 01/31/21 15:12 Source of Information: Reports: Patient, Family, RN Notes Reviewed History Limitations: Reports: Physical Impairment - History of Present Illness INITIAL COMMENTS - FREE TEXT/NARRATIVE: 70-year-old gentleman presents emergency department today following a fall, he has a known history of Parkinson's came out of the [facility] had some stability issues fell taking his down with him. He is complaining of neck pain, pain on the left side of the chest as well as bruising over his finger on his right hand second, no headache no loss of consciousness no vomiting - Related Data Allergies Allergy/AdvReac Type Severity Reaction Status Date / Time No Known Allergies Allergy Verified 01/31/21 13:53 Home Meds: Home Meds Levothyroxine Sodium 137 mcg PO DAILY 09/10/16 [History] Metoprolol Tartrate 25 mg PO BID 09/10/16 [History] Nitroglycerin [IJP: Nitroglycerin] 0.4 mg SL ASDIRECTED PRN 09/10/16 [History] Omeprazole 20 mg PO BID 09/10/16 [History] atorvaSTATin [Lipitor] 40 mg PO BEDTIME 09/10/16 [History] lisinopriL [Prinivil] 2.5 mg PO DAILY 09/10/16 [History] metFORMIN HCl [Metformin HCl] 500 mg PO BID 09/10/16 [History] Aspirin [Ecotrin EC] 81 mg PO DAILY 10/11/19 [History] Tamsulosin [Tamsulosin 24 Hr] 0.4 mg PO DAILY 10/11/19 [History] Ubidecarenone [Co Q-10] 100 mg PO DAILY 10/11/19 [History] Vitamin B Complex 1 cap PO DAILY 10/11/19 [History] QUEtiapine Fumarate [Seroquel] 25 mg PO DAILY 11/11/20 [History] traZODone 50 mg PO BEDTIME #30 tab 11/11/20 [Rx] Past Medical History HEENT History: Reports: Impaired Vision, Other (See Below) Other HEENT History: eye infection Cardiovascular History: Reports: CAD, Heart Murmur, High Cholesterol, Hyperte nsion, Stents Respiratory History: Reports: COPD Gastrointestinal History: Reports: Gastritis, GI Bleed Genitourinary History: Reports: BPH Musculoskeletal History: Reports: None Neurological History: Reports: Parkinson's Other Neuro History: ? Parkinsons Psychiatric History: Reports: None Endocrine/Metabolic History: Reports: Diabetes, Type II, Hypothyroidism Hematologic History: Reports: None Immunologic History: Reports: None Oncologic (Cancer) History: Reports: None Dermatologic History: Reports: None - Infectious Disease History Infectious Disease History: Reports: Chicken Pox, Measles, Mumps, Shingles - Past Surgical History Cardiovascular Surgical History: Reports: Coronary Artery Bypass, Percutaneous Transluminal Angioplasty Other Cardiovascular Surgeries/Procedures: 2 years ago GI Surgical History: Reports: Colonoscopy, Hernia Repair/Other Social & Family History - Tobacco Use Tobacco Use Status *Q: Never Tobacco User - Caffeine Use Caffeine Use: Reports: Tea Caffeine Use Comment: 2 cups of coffee per day - Recreational Drug Use Recreational Drug Use: No ED ROS GENERAL - Review of Systems Review Of Systems: See Below Constitutional: Reports: No Symptoms Respiratory: Reports: No Symptoms Cardiovascular: Reports: No Symptoms GI/Abdominal: Reports: No Symptoms Musculoskeletal: Reports: Neck Pain, Hand Pain, Other (Chest wall pain) ED EXAM, GENERAL - Physical Exam Exam: See Below Exam Limited By: Physical Impairment General Appearance: Alert, No Apparent Distress Eye Exam: Bilateral Eye: EOMI, Normal Inspection, PERRL Ears: Normal External Exam, Normal Canal, Hearing Grossly Normal, Normal TMs Nose: Normal Inspection, Normal Mucosa, No Blood Throat/Mouth: Normal Inspection, Normal Lips, Normal Teeth, Normal Gums, Normal Oropharynx, Normal Voice, No Airway Compromise Head: Atraumatic, Normocephalic Neck: Tender Midline (C4 region) Respiratory/Chest: No Respiratory Distress, Lungs Clear, Normal Breath Sounds, No Accessory Muscle Use, Other (Tenderness to palpation along the left side of the chest T4 region) Cardiovascular: Regular Rate, Rhythm, No Murmur GI/Abdominal: Soft, Non-Tender Course - Vital Signs Last Recorded V/S: Last Vital Signs Temp 98.5 F 01/31/21 13:49 Pulse 73 01/31/21 14:55 Resp 18 01/31/21 13:49 BP 181/84 H 01/31/21 14:55 Pulse Ox 97 01/31/21 14:55 - Orders/Labs/Meds Meds: Medications Discontinued Medications Generic Name Dose Route Start Last Admin Trade Name Freq PRN Reason Stop Dose Admin Hydrocodone Bitart/Acetaminophen 1 tab 01/31/21 15:16 01/31/21 16:08 Acetaminophen/Hydrocodone 325-5 Mg Tab PO 01/31/21 15:17 1 tab ONETIME ONE Administration Departure - Departure Time of Disposition: 17:03 Disposition: Home, Self-Care 01 Condition: Poor Clinical Impression: Contusion Qualifiers: Encounter type: initial encounter Contusion area: thoracic wall Front or back of thoracic wall: front Thoracic wall location detail: left Qualified Code(s): S20.212A - Contusion of left front wall of thorax, initial encounter - Discharge Information Instructions: Contusion Referrals: PCP,None [Primary Care Provider] - Forms: ED Department Discharge Additional Instructions: Use Tylenol or Motrin as needed for pain control, please followup with your primary care provider in 3-5 days if not better, please call return to the emergency department with worsening of symptoms. Sepsis Event Note (ED) - Evaluation Sepsis Screening Result: No Definite Risk - Focused Exam Vital Signs: Vital Signs Temp Pulse Resp BP Pulse Ox 01/31/21 14:55 73 181/84 H 97 01/31/21 14:30 76 188/91 H 97 01/31/21 13:49 98.5 F 78 18 197/94 H 98 - Assessment/Plan Plan: Assessment Acuity = acute Site and laterality = contusion, neck, chest, finger Etiology = trauma with a fall Manifestations = none Location of injury = Home Lab values = CT scan of the neck no fracture, no fracture in the finger no fracture in the chest no acute cardiopulmonary process Plan Tylenol Motrin as needed for pain control follow-up primary care 3 to 5 days if not better This note was dictated using [employer] voice recognition software please call with any questions on syntax or grammar.
--- NOTE | 2021-01-31 16:19 | CRLCR ---
For Patients: As a result of the Cures Act, medical imaging exams and procedure reports are released immediately into your electronic medical record. You may view this report before your referring provider. If you have questions, please contact your health care provider. INDICATION: Trauma, pain. TECHNIQUE: Chest 1 views. COMPARISON: 10/11/2019. FINDINGS: Cardiovascular and mediastinum: Heart size and vasculature are normal in caliber and appearance. Lungs and pleural spaces: Lungs are clear. No sign of infiltrate or mass. No sign of pleural effusion. No pneumothorax. Bones and soft tissues: No significant findings. IMPRESSION: No acute findings and no significant changes from the prior exam. Dictated by Marcio Egan MD @ 01/31/2021 4:16:34 PM (Electronically Signed)
--- NOTE | 2021-01-31 16:20 | CRLCT ---
For Patients: As a result of the Cures Act, medical imaging exams and procedure reports are released immediately into your electronic medical record. You may view this report before your referring provider. If you have questions, please contact your health care provider. INDICATION: Pain, trauma TECHNIQUE: CT cervical spine without contrast. COMPARISON: None FINDINGS: Vertebrae: No definite fracture seen. There is some subluxation at the atlantoaxial joints with the head angled to the left. Discs and facet joints: Facet hypertrophy at C3-4 and C4-5 without significant stenosis. Broad posterior osteophytes at C5-6 causing moderate right and mild left foraminal stenosis. Facet hypertrophy at C6-7 and C7-T1 without significant stenosis. Extraspinal findings: Atherosclerosis. IMPRESSION: 1. No evidence of cervical spine fracture. 2. Some subluxation at the atlantoaxial joint. The patient`s head is tilted towards the left. This can be positional although the differential diagnosis includes rotary subluxation. Please note that all CT scans at this facility use dose modulation, iterative reconstruction, and/or weight-based dosing when appropriate to reduce radiation dose to as low as reasonably achievable. Dictated by Familia Yang MD @ 01/31/2021 4:18:59 PM (Electronically Signed)
--- NOTE | 2021-01-31 16:23 | CRLCR ---
For Patients: As a result of the Century Cures Act, medical imaging exams and procedure reports are released immediately into your electronic medical record. You may view this report before your referring provider. If you have questions, please contact your health care provider. Indication: Trauma, pain. Technique: Right 2nd finger 3 views. Comparison: None. Findings/Impression: Bones: Alignment is normal. No fractures or bone lesions. Joint spaces: Moderate arthritic changes. Soft tissues: Generalized soft tissue swelling present in the 2nd finger. Dictated by Marcio Egan MD @ 01/31/2021 4:21:49 PM (Electronically Signed)
== END 2021-01-31 17:36 | disposition home or self-care (01) ==
LOC: JP.ED 13:45
DX: S20.212A Contusion of left front wall of thorax, initial encounter (principal); M54.2 Cervicalgia; M79.641 Pain in right hand; I10 Essential (primary) hypertension; E03.9 Hypothyroidism, unspecified; E11.9 Type 2 diabetes mellitus without complications; I25.10 Atherosclerotic heart disease of native coronary artery without angina pectoris; E78.00 Pure hypercholesterolemia, unspecified; J44.9 Chronic obstructive pulmonary disease, unspecified; Z79.82 Long term (current) use of aspirin; Z79.84 Long term (current) use of oral hypoglycemic drugs; Z79.899 Other long term (current) drug therapy; W10.9XXA Fall (on) (from) unspecified stairs and steps, initial encounter
CPT/HCPCS: 71046; 72125; 73140; 99284; A9270